=== PATIENT | male | born 2000 | race Caucasian/White ===

== ENCOUNTER 2025-02-08 13:51 | Inpatient (IN) | payer OTHER ==
[~2025-02-08] VITALS: Ht 170.2 cm; Wt 86.0 kg
[2025-02-08 17:30] VITALS: BP 126/69; PULSE 90; RESP 18; TEMP 98.8; O2SAT 97
[2025-02-08] MEDS ORDERED: OxyCODONE HCL 5 MG IR TABLET PO PRN (18:00)
[2025-02-08] MEDS: IBUPROFEN 600 MG TABLET PO SCH (19:04)
[2025-02-08] MEDS: ACETAMINOPHEN 325 MG TABLET PO SCH (19:04)
[2025-02-08 20:05] VITALS: BP 113/63; PULSE 92; RESP 18; TEMP 98.6; O2SAT 97
[2025-02-08] MEDS: DOCUSATE SODIUM 100 MG CAPSULE PO SCH (21:00)
[2025-02-08] MEDS: ETHYL ALCOHOL 62% ANTISEPTIC NASAL SANITIZER 0.6 ML AMPUL NASAL SCH (21:52)
[2025-02-08] MEDS: GABAPENTIN 300 MG CAPSULE PO SCH (21:52)
[2025-02-08] MEDS: ENOXAPARIN SODIUM 40 MG/0.4 ML PF SYRINGE SQ SCH (21:52)
[2025-02-09 07:32] LABS: PLATELET COUNT (AUTO) 408 K/uL (150-450); RED BLOOD CELL COUNT(AUTO) 3.87 MIL/uL (4.50-5.90); RED CELL DISTRIBUTION WIDTH 13.6 % (11.5-14.5); WHITE BLOOD COUNT (AUTO) 7.8 K/uL (4.5-11.0)
[2025-02-09 07:51] LABS: ASPARTATE AMINOTRANSFERASE 39 U/L (15-37); CALCIUM, TOTAL 9.1 mg/dL (8.8-10.5); CREATININE 0.57 mg/dL (0.60-1.30); GLOMERULAR FILTR. RATE CALC > 60 mL/min (>60); GLUCOSE,RANDOM 90 mg/dL (70-110); SODIUM SERUM 137 mmol/L (136-145); TOTAL PROTEIN, SERUM 7.4 g/dL (6.4-8.2); UREA NITROGEN, BLOOD 13 mg/dL (7-18)
[2025-02-09 08:00] VITALS: BP 113/61; PULSE 69; RESP 19; TEMP 98.1; O2SAT 99
[2025-02-09] MEDS: SENNOSIDES 8.6 MG TABLET PO SCH (09:00)
[2025-02-09] MEDS: POLYETHYLENE GLYCOL 3350 17 GM PACKET PO SCH (09:00)
[2025-02-09 20:05] VITALS: BP 130/65; PULSE 70; RESP 18; TEMP 98.6; O2SAT 100
[2025-02-10 00:11] VITALS: O2SAT 100
[2025-02-10 08:00] VITALS: BP 107/60; PULSE 76; RESP 20; TEMP 98.6; O2SAT 98
[2025-02-10 20:00] VITALS: BP 114/62; PULSE 80; RESP 19; TEMP 98.1; O2SAT 98
[2025-02-11 08:00] VITALS: BP 127/78; PULSE 88; RESP 20; TEMP 98.8; O2SAT 99
[2025-02-11] MEDS ORDERED: IBUPROFEN 600 MG TABLET PO PRN (12:15)
[2025-02-11] MEDS: ASPIRIN 325 MG TABLET PO SCH (13:31)
[2025-02-11] MEDS ORDERED: GABAPENTIN 300 MG CAPSULE PO SCH (16:00)
[2025-02-11] MEDS: GABAPENTIN 100 MG CAPSULE PO SCH (16:10)
[2025-02-11] MEDS: ACETAMINOPHEN 325 MG TABLET PO SCH (17:41)
[2025-02-11 21:00] VITALS: BP 115/57; PULSE 74; RESP 18; TEMP 98.6; O2SAT 98
[2025-02-12] MEDS ORDERED: ASPIRIN 325 MG TABLET PO SCH (07:30)
[2025-02-12 08:00] VITALS: BP 114/66; PULSE 78; RESP 18; TEMP 98.6; O2SAT 97
== END 2025-02-12 18:30 | disposition home or self-care (01) | DRG 560 ==
LOC: 2WR 17:47
PROVIDERS: ADMIT Physical Medicine & Rehabilitation; ATTEND Physical Medicine & Rehabilitation
DX: S82.141D Displaced bicondylar fracture of right tibia, subsequent encounter for closed fracture with routine healing (principal); J93.83 Other pneumothorax; E88.09 Other disorders of plasma-protein metabolism, not elsewhere classified; D64.9 Anemia, unspecified; F43.20 Adjustment disorder, unspecified; Z74.09 Other reduced mobility; R26.9 Unspecified abnormalities of gait and mobility; S82.091D Other fracture of right patella, subsequent encounter for closed fracture with routine healing; S22.41XD Multiple fractures of ribs, right side, subsequent encounter for fracture with routine healing; V29.99XD Rider (driver) (passenger) of other motorcycle injured in unspecified traffic accident, subsequent encounter; Z79.899 Other long term (current) drug therapy; Z79.82 Long term (current) use of aspirin; S52.502D Unspecified fracture of the lower end of left radius, subsequent encounter for closed fracture with routine healing; S52.202D Unspecified fracture of shaft of left ulna, subsequent encounter for closed fracture with routine healing
CPT/HCPCS: 80053; 85025; 87081; 92523; 97110; 97116; 97163; 97167; 97530; 97535; 99366; G0238; J1650